=== PATIENT | female | born 1945 | race African-American/Black ===

== ENCOUNTER 2017-02-26 10:33 | Emergency (ER) | payer MEDICAID, MEDICARE ==
--- NOTE | 2017-02-26 12:02 | Emergency Department Report ---
HPI - General Chief Complaint: Extremity Problem,Nontraumatic Time Seen by Provider: 02/26/17 11:27 - HPI HPI: This is a 71-year-old female presents to the emergency department by EMS from home with complaint of bilateral lower extremity pain with the right leg much worse than the left. The pain seems to start in the buttock and hip and radiate down her leg. It worsens with movement of the leg and palpation. The patient has had this pain going on over the past few years but it worsened late last night. She denies any skin color change, swelling. She has not taken anything specifically for her pain prior to presentation but has been compliant with her home medications to treat her history of hypertension and diabetes. Her primary care doctor is Dr. Pete Calero but she has not seen him regarding the symptoms. The patient does not speak Romanian but translation is being done by her home health resident care provider. No recent travel or sick contacts at home. ED Past Medical Hx - Past Medical History Previous Medical History?: Yes Hx Hypertension: Yes Hx Diabetes: Yes - Surgical History Past Surgical History?: No - Social History Smoking Status: Never Smoker Substance Use Type: None - Medications Home Medications: Home Medications Medication Instructions Recorded Confirmed Last Taken Type Diazepam Tab [Valium] 2 mg PO BID PRN #6 tablet 02/26/17 Unknown Rx Ibuprofen [Motrin 600 MG tab] 600 mg PO Q8H PRN #16 tablet 02/26/17 Unknown Rx ED Review of Systems ROS: Stated complaint: HIP PAIN Other details as noted in HPI Comment: All other systems reviewed and negative Constitutional: denies: chills, fever Eyes: denies: eye pain, eye discharge, vision change ENT: denies: ear pain, throat pain Respiratory: denies: cough, shortness of breath, wheezing Cardiovascular: denies: chest pain, palpitations Gastrointestinal: denies: abdominal pain, nausea, diarrhea Genitourinary: denies: urgency, dysuria, discharge Musculoskeletal: arthralgia, myalgia. denies: joint swelling Skin: denies: rash, lesions Neurological: denies: headache, numbness Physical Exam - Physical Exam Vital Signs: Vital Signs 02/26/17 11:19 Temperature 98.9 F Pulse Rate 85 Respiratory 16 Rate Blood Pressure 153/74 [Right] O2 Sat by Pulse 97 Oximetry Physical Exam: GENERAL: The patient is well-developed well-nourished. HEENT: Normocephalic. Atraumatic. Extraocular motions are intact. Patient has moist mucous membranes. Pupils equal reactive to light bilaterally. NECK: Supple. Trachea is midline. CHEST/LUNGS: Clear to auscultation. There is no respiratory distress noted. HEART/CARDIOVASCULAR: Regular. There is no tachycardia. There is no gallop rub or murmur. ABDOMEN: Abdomen is soft, nontender. Patient has normal bowel sounds. There is no abdominal distention. SKIN: Skin is warm and dry. NEURO: The patient is awake, alert, and oriented. The patient is cooperative. The patient has no focal neurologic deficits. The patient has normal speech. MUSCULOSKELETAL: There is some tenderness to palpation to the right buttock, lateral hip, and proximal thigh but no obvious deformity. There is some mild decreased range of motion of the right lower extremity secondary to pain. Pedal pulses +2 over 4 bilaterally. Cap refill less than 2 seconds. There is reproduced pain with the right lower extremity straight leg raise test. There is no evidence of acute injury. ED Course Vital Signs 02/26/17 11:19 Temperature 98.9 F Pulse Rate 85 Respiratory 16 Rate Blood Pressure 153/74 [Right] O2 Sat by Pulse 97 Oximetry ED Medical Decision Making - Lab Data Result diagrams: 02/26/17 11:54 02/26/17 11:54 - Radiology Data Radiology results: report reviewed, image reviewed interpreted by me: X-ray of the right hip does not show any fracture, dislocation or any acute process. Right lower extremity venous Doppler is negative for any acute DVT or any acute process. - Medical Decision Making 71-year-old female presents the emergency department with right lower extremity pain that is worst towards the buttock and hip and radiates down the leg. The patient's rougher machine operator speaks her language and has been doing translation for us. They say that the patient does have a history of this in the past and has been diagnosed with sciatica the past as well. First, the patient was sent for a venous Doppler of the right lower extremity to rule out a DVT and it was in fact negative for acute DVT or acute process. Her labs were unremarkable including no signs of psychosis, electrolyte abnormalities, renal insufficiency , glucose abnormalities. At first the patient felt like she was having trouble with urination but says she just had trouble urinating while laying on the gurney and she could not get up and go to the bathroom due to her discomfort. An IV was placed and the patient was given some low-dose Valium for muscle relaxation and a dose of Toradol. Upon reevaluation she says she is feeling much better. The patient was able to get up in the emergency Department and ambulate for moderate distances without any instability. After the patient was able to get up and move around, she was able to display the ability to go to the bathroom and urinate without any difficulty. So there does not appear to be any signs of urinary retention. Vital signs stable throughout her ED course. The patient will be discharged home with a very small amount of muscle relaxer and NSAIDs and encouragement to follow-up with her primary care doctor. She will return to the ER with any worsening of her symptoms or any acute distress. The patient does not have any problems with bowel or bladder, numbness or paresthesias or any neurological deficits. She does not appear to have any signs of any emergent condition such as cauda equina, cord compression syndrome or epidural abscess. - Differential Diagnosis sciatica, hip dislocation, muscle strain Critical Care Time: No Critical care attestation.: If time is entered above; I have spent that time in minutes in the direct care of this critically ill patient, excluding procedure time. ED Disposition Clinical Impression: Sciatica Qualifiers: Laterality: right Qualified Code(s): M54.31 - Sciatica, right side Disposition: DISCHARGED TO HOME OR SELFCARE Is pt being admited?: No Condition: Stable Instructions: Sciatica (ED) Additional Instructions: Please follow-up with your primary care doctor in the next few days. Return to the emergency department with any worsening of your symptoms or any acute distress. You've been prescribed a medication that is sedating. Therefore this medication cannot be mixed with alcohol, or taken prior to driving, working, or being responsible for children. Prescriptions: Diazepam Tab [Valium] 2 mg PO BID PRN #6 tablet PRN Reason: Muscle Spasm Ibuprofen [Motrin 600 MG tab] 600 mg PO Q8H PRN #16 tablet PRN Reason: Pain Referrals: PRIMARY CARE, [Primary Care Provider] - [facility] Time of Disposition: 15:08
[2017-02-26 12:19] LABS: Basophils % (Auto) 0.4 % (0.0-1.8); Eosinophils % (Auto) 0.8 % (0.0-4.3); Hematocrit 33.2 % (30.3-42.9); Hemoglobin 11.5 gm/dl (10.1-14.3); Mean Corpuscular HGB Conc 35 % (30-34); Mean Corpuscular Hemoglobin 32 pg (28-32); Mean Corpuscular Volume 93 fl (79-97); Platelet Count 271 K/mm3 (140-440); Red Blood Count 3.57 M/mm3 (3.65-5.03); Red Cell Distribution Width 12.2 % (13.2-15.2); White Blood Count 9.9 K/mm3 (4.5-11.0)
[2017-02-26 12:42] LABS: Anion Gap 19 mmol/L; BUN/Creatinine Ratio 21.11; Blood Urea Nitrogen 19 mg/dL (7-17); Calcium 9.3 mg/dL (8.4-10.2); Carbon Dioxide 25 mmol/L (22-30); Chloride 99.4 mmol/L (98-107); Glucose 131 mg/dL (65-100); Potassium 4.6 mmol/L (3.6-5.0); Sodium 139 mmol/L (137-145)
[2017-02-26] MEDS ORDERED: TORADOL IV ONE (12:48)
[2017-02-26] MEDS ORDERED: VALIUM IV ONE (12:48)
--- NOTE | 2017-02-26 13:03 | XRay Report ---
Right hip 2 views: History: Hip pain. Findings: No definite bony or articular abnormality. No fracture dislocation or soft tissue calcification. Impression: No definite bony or articular abnormality. Mild hip arthritis if present cannot be excluded.
--- NOTE | 2017-02-26 13:33 | Admit Criteria Form ---
Admission Criteria Documentation: MUSCULOSKELETAL DISEASE GRG Clinical Indications for Admission to Inpatient Care (Place 'X' for any and all applicable criteria): Hospital admission is needed for appropriate care of the patient because of 1 or more of the following: [ ]I. Fracture, dislocation, or other musculoskeletal injury requiring inpatient care(medical) as indicated by 1 or more of the following(4)(5)(6)(7) [ ]a) Vertebral fracture requiring observation for instability or neurologic compromise (8) [ ]b) Compartment syndrome (proven or cannot be ruled out during observation level of care) (9) [ ]c) Limb-threatening injury [ ]d) Major injury requiring inpatient stabilization such as traction initiation or external fixation before internal fixation or closure of complex or open fracture [ ]e) Major injury requiring inpatient treatment after emergency or observation level care (as appropriate) [ ]f) Severe pain requiring acute inpatient management [ ]g) Injury with suspicion of abuse or neglect (eg., child, dependent elderly) [ ]II. Newly diagnosed or suspected bone, joint, or orthopedic device infection (e.g., osteomyelitis, septic arthritis) needing 1 or more of the following(1)(2)(3) [ ]a) IV antibiotics that cannot be initiated in other than inpatient setting (e.g., patient too unstable or home infusion not available) [ ]b) Device removal or replacement [ ]c) Bone or soft tissue debridement [ ]d) Joint drainage (drain placement or repetitive aspirations) [ ]III. Severe rheumatologic disease (e.g., systemic lupus erythematosus, rheumatoid arthritis) with complications or comorbidities (Also use Optimal Recovery Care Criteria or General Recovery Criteria as appropriate on the basis of predominant condition), including 1 or more of the following( 10)(11)(12)(13) [ ]a) Severe infection (e.g., WAGON DRIVER infection, sepsis) (14) [ ]b) Respiratory complications, including 1 or more of the following : [ ]i) Pleural effusion with respiratory compromise [ ]ii) Pulmonary hypertension with congestive failure [ ]iii) Respiratory failure [ ]iv) Pulmonary hemorrhage (15) [ ]c) Hematologic disease, including 1 or more of the following: [ ]i) Coagulopathy with bleeding [ ]ii) Thrombosis with hypercoagulable state [ ]iii) Thrombotic thrombocytopenic purpura [ ]d) Cerebritis with seizures, psychosis, or other severe abnormalities [ ]e) Vertebral destruction with monitoring needed for cervical myelopathy& possible respiratory compromise [ ]f) Exacerbation that requires inpatient treatment (e.g., intravenous immunosuppression) (16) [ ]g) Acute renal failure [ ]h) Cerebritis with seizures, psychosis, Altered mental status, or other neurologic abnormalities [ ]i) Pericardial effusion with tamponade [ ]j) Vertebral destruction, with monitoring needed for cervical myelopathy and possible respiratory compromise [ ]IV. Severe vasculitis with complications or comorbidities (Also use Optimal Recovery Care Criteria General Recovery Criteria as appropriate on the basis of predominant condition), including 1 or more of the following(11)(12)(17)(18)(19)(20) [ ]a) Exacerbation that requires inpatient treatment (e.g., intravenous immunosuppression) (19)(21) [ ]b) Pulmonary hemorrhage (15) [ ]c) WAGON DRIVER vasculitis with seizures, psychosis, Altered mental status that is severe or persistent, or other severe abnormalities (22) [ ]d) Cerebral infarction [ ]e) Gastrointestinal ischemia [ ]f) Gangrene or threatened amputation [ ]g) Renal failure (16) [ ]h) Other significant complications of vasculitis ( eg., tissue or organ ischemia, organ dysfunction ) [ ]V. Severe myopathy as indicated by 1 or more of the following (28)(29) [ ]a) New onset of airway compromise or inability to swallow [ ]b) Respiratory deterioration with observation needed for impending respiratory failure [ ]c) Exacerbation that requires inpatient treatment (e.g., intravenous immunosuppression) [ ]. Severe crystal gout (arthropathy) indicated by 1 or more of the following (23)(24) [ ]a) Severe pain requiring acute inpatient management [ ]b) Exacerbation that requires inpatient treatment (e.g., intravenous treatment) [ ]VII.Rhabdomyolysis and 1 or more of the following (25)(26)(27) [ ]a) Acute renal failure [ ]b) Need for intravenous hydration after emergency or observation level care (as appropriate) [ ]c) Inability to maintain oral hydration [ ]d) Change in mental status [ ]e) Electrolyte abnormality that remains after emergency or observation level care (as appropriate) [ ]VIII Post amputation complication, as indicated by ANY ONE of the following [ ]a) Infection [ ]b) Dehiscence [ ]c) Myodesis failure [X ]IX. Severe pain requiring acute inpatient management due to musculoskeletal condition [ ]X. Musculoskeletal Disease and ALL of the following: [ ]a) Symptom or finding for which emergency and observation care have failed or are not considered appropriate (Use General Criteria: Observation Care as appropriate) [ ]b) Presence of ANY ONE of the following [ ]i) A General Admission Criteria [ ]ii) A Pediatric General Admission Criteria The original [facility] [employer] content created by [facility] [employer] has been revised. The portions of the content which have been revised are identified through the use of italic text or in bold, and [facility] has neither reviewed nor approved the modified material. All other unmodified content is copyright [facility] [employer]. Please see references footnoted in the original [facility] edition 2016
[2017-02-26 13:45] LABS: Bilirubin,Urine NEG (Negative); Blood,Urine NEG (Negative); Ketones,Urine NEG (Negative); Leukocyte Esterase,Urine NEG (Negative); Nitrite,Urine NEG (Negative); Protein,Urine <15 mg/dL mg/dL (Negative); RBC,Urine < 1.0 /HPF (0.0-6.0); Urobilinogen,Urine < 2.0 mg/dL (<2.0); WBC,Urine < 1.0 /HPF (0.0-6.0)
[2017-02-26 15:18] VITALS: BP 126/82
--- NOTE | 2017-02-27 08:12 | Vascular Lab Report ---
LOWER EXTREMITY VENOUS DUPLEX: REASON FOR EXAM: Pain of the lower extremities. COMMENTS ON THE RIGHT: All veins visualized are freely compressible without evidence of internal echogenicity. Flow is spontaneous and phasic throughout. COMMENTS ON THE LEFT: All veins visualized are freely compressible without evidence of internal echogenicity. Flow is spontaneous and phasic throughout. IMPRESSION: No evidence of acute or chronic deep venous thrombosis in either lower extremity.
== END 2017-02-26 15:16 | disposition home or self-care (01) ==
LOC: ED 10:33
DX: M54.31 Sciatica, right side (principal); I10 Essential (primary) hypertension; E11.9 Type 2 diabetes mellitus without complications
CPT/HCPCS: 36415; 73502; 80048; 81001; 82962; 85025; 93970; 96374; 96375; 99285; J1885; J3360

== ENCOUNTER 2017-07-05 09:40 | Emergency (ER) | payer MEDICARE ==
--- NOTE | 2017-07-05 10:09 | Emergency Department Report ---
ED General Adult HPI - General Chief complaint: Pain General Stated complaint: HEADACHE Time Seen by Provider: 07/05/17 10:03 Source: EMS Mode of arrival: Stretcher Limitations: Language Barrier - History of Present Illness Initial comments: Patient is a 71-year-old female past medical history of hypertension and diabetes who presents with neck and back pain. Patient states that pain has been going on for the last couple days but it has worsened since she woke up this morning. She says the pain as a 7 out of 10 this constant. Radiates down her back. Rest makes it better and moving in certain positions makes it worse. Patient denies any chest pain nausea or vomiting. - Related Data Home Medications Medication Instructions Recorded Confirmed Last Taken Acetaminophen/Codeine [Tylenol 07/05/17 Unknown /Codeine # 3 tab] Alendronate Sodium [Fosamax] 70 mg PO QWEEK 07/05/17 07/05/17 Unknown Celecoxib 200 mg PO 07/05/17 Unknown Gabapentin [Neurontin] 07/05/17 Unknown Losartan/Hydrochlorothiazide 07/05/17 Unknown [Losartan-Hctz 100-25 mg Tab] Nitroglycerin [Nitrostat] 0.4 mg SL Q5M PRN 07/05/17 07/05/17 Unknown Omeprazole 20 07/05/17 Unknown Simvastatin [Zocor TAB] 07/05/17 Unknown Sitagliptin Phosphate [Januvia] 100 mg PO 07/05/17 Unknown traMADol [Ultram 50 MG tab] 07/05/17 Unknown Previous Rx's Medication Instructions Recorded Last Taken Type Diazepam Tab [Valium] 2 mg PO BID PRN #6 tablet 02/26/17 Unknown Rx Ibuprofen [Motrin 600 MG tab] 600 mg PO Q8H PRN #16 tablet 02/26/17 Unknown Rx Acetaminophen [Shake That Ache] 1,000 mg PO Q6HR PRN #30 tablet 07/05/17 Unknown Rx Allergies Allergy/AdvReac Type Severity Reaction Status Date / Time No Known Allergies Allergy Unverified 02/26/17 10:38 ED Review of Systems ROS: Stated complaint: HEADACHE Other details as noted in HPI Constitutional: denies: chills, fever Eyes: denies: eye pain, eye discharge, vision change ENT: denies: ear pain, throat pain Respiratory: denies: cough, shortness of breath, wheezing Cardiovascular: denies: chest pain, palpitations Endocrine: no symptoms reported Gastrointestinal: denies: abdominal pain, nausea, diarrhea Genitourinary: denies: urgency, dysuria, discharge Musculoskeletal: back pain, myalgia. denies: joint swelling, arthralgia Skin: denies: rash, lesions Neurological: denies: headache, weakness, paresthesias Psychiatric: denies: anxiety, depression Hematological/Lymphatic: denies: easy bleeding, easy bruising ED Past Medical Hx - Past Medical History Hx Hypertension: Yes Hx Diabetes: Yes - Social History Smoking Status: Unknown if ever smoked Substance Use Type: None - Medications Home Medications: Home Medications Medication Instructions Recorded Confirmed Last Taken Type Diazepam Tab [Valium] 2 mg PO BID PRN #6 tablet 02/26/17 Unknown Rx Ibuprofen [Motrin 600 MG tab] 600 mg PO Q8H PRN #16 tablet 02/26/17 Unknown Rx Acetaminophen [Shake That Ache] 1,000 mg PO Q6HR PRN #30 tablet 07/05/17 Unknown Rx Acetaminophen/Codeine [Tylenol 07/05/17 Unknown History /Codeine # 3 tab] Alendronate Sodium [Fosamax] 70 mg PO QWEEK 07/05/17 07/05/17 Unknown History Celecoxib 200 mg PO 07/05/17 Unknown History Gabapentin [Neurontin] 07/05/17 Unknown History Losartan/Hydrochlorothiazide 07/05/17 Unknown History [Losartan-Hctz 100-25 mg Tab] Nitroglycerin [Nitrostat] 0.4 mg SL Q5M PRN 07/05/17 07/05/17 Unknown History Omeprazole 20 07/05/17 Unknown History Simvastatin [Zocor TAB] 07/05/17 Unknown History Sitagliptin Phosphate [Januvia] 100 mg PO 07/05/17 Unknown History traMADol [Ultram 50 MG tab] 07/05/17 Unknown History ED Physical Exam - General Limitations: Language Barrier General appearance: alert, in no apparent distress - Head Head exam: Present: atraumatic, normocephalic - Eye Eye exam: Present: normal appearance - ENT ENT exam: Present: mucous membranes moist - Neck Neck exam: Present: tenderness - Respiratory Respiratory exam: Present: normal lung sounds bilaterally. Absent: respiratory distress - Cardiovascular Cardiovascular Exam: Present: regular rate, normal rhythm. Absent: systolic murmur, diastolic murmur, rubs, gallop - GI/Abdominal GI/Abdominal exam: Present: soft, normal bowel sounds - Extremities Exam Extremities exam: Present: normal inspection - Back Exam Back exam: Present: tenderness, muscle spasm, paraspinal tenderness - Neurological Exam Neurological exam: Present: alert, oriented X3 - Psychiatric Psychiatric exam: Present: normal affect, normal mood - Skin Skin exam: Present: warm, dry, intact, normal color. Absent: rash ED Course Vital Signs 07/05/17 07/05/17 09:57 11:19 Temperature 97.8 F Pulse Rate 84 80 Respiratory 20 20 Rate Blood Pressure 154/73 Blood Pressure 141/66 [Left] O2 Sat by Pulse 100 97 Oximetry ED Medical Decision Making - Lab Data Result diagrams: 07/05/17 10:51 07/05/17 10:51 Lab Results 07/05/17 07/05/17 07/05/17 Range/Units 10:51 10:51 11:55 WBC 8.6 (4.5-11.0) K/mm3 RBC 3.56 L (3.65-5.03) M/mm3 Hgb 11.3 (10.1-14.3) gm/dl Hct 32.5 (30.3-42.9) % MCV 91 (79-97) fl MCH 32 (28-32) pg MCHC 35 H (30-34) % RDW 12.1 L (13.2-15.2) % Plt Count 253 (140-440) K/mm3 Lymph % (Auto) 18.7 (13.4-35.0) % [place] % (Auto) 9.7 H (0.0-7.3) % Eos % (Auto) 0.9 (0.0-4.3) % Baso % (Auto) 0.8 (0.0-1.8) % Lymph # 1.6 (1.2-5.4) K/mm3 [place] # 0.8 (0.0-0.8) K/mm3 Eos # 0.1 (0.0-0.4) K/mm3 Baso # 0.1 (0.0-0.1) K/mm3 Seg Neutrophils % 69.9 (40.0-70.0) % Seg Neutrophils # 6.0 (1.8-7.7) K/mm3 Sodium 139 (137-145) mmol/L Potassium 4.8 (3.6-5.0) mmol/L Chloride 101.4 (98-107) mmol/L Carbon Dioxide 23 (22-30) mmol/L Anion Gap 19 mmol/L BUN 17 (7-17) mg/dL Creatinine 0.7 (0.7-1.2) mg/dL Estimated GFR > 60 ml/min BUN/Creatinine Ratio 24.28 % Glucose 93 (65-100) mg/dL Calcium 9.0 (8.4-10.2) mg/dL Total Bilirubin 0.40 (0.1-1.2) mg/dL AST 19 (5-40) units/L ALT 15 (7-56) units/L Alkaline Phosphatase 65 (35-129) units/L Total Protein 7.5 (6.3-8.2) g/dL Albumin 3.6 L (3.9-5) g/dL Albumin/Globulin Ratio 0.9 % Urine Color Red (Yellow) Urine Turbidity Clear (Clear) Urine pH 7.0 (5.0-7.0) Ur Specific [place] 1.003 (1.003-1.030) Urine Protein <15 mg/dl (Negative) mg/dL Urine Glucose (UA) Neg (Negative) mg/dL Urine Ketones Neg (Negative) mg/dL Urine Blood Neg (Negative) Urine Nitrite Neg (Negative) Urine Bilirubin Neg (Negative) Urine Urobilinogen < 2.0 (<2.0) mg/dL Ur Leukocyte Esterase Neg (Negative) Urine WBC (Auto) < 1.0 (0.0-6.0) /HPF Urine RBC (Auto) < 1.0 (0.0-6.0) /HPF U Epithel Cells (Auto) 1.0 (0-13.0) /HPF - Medical Decision Making Medical diagnosis: Cervicalgia Differential diagnosis: metabolic abnormality, sciatica, paraspinal tenderness Plan CBC, CMP, oral analgesic segment medication, muscle relaxers and I will reevaluate. Agents pain is better discussed with patient that she has paraspinal neck pain and will need heating packs and neck exercises to make the pain better. Patient recently plan and she'll follow up with primary care doctor. Critical care attestation.: If time is entered above; I have spent that time in minutes in the direct care of this critically ill patient, excluding procedure time. ED Disposition Clinical Impression: Cervicalgia, Myalgia Lower back pain Qualifiers: Chronicity: acute Back pain laterality: unspecified Sciatica presence: with sciatica Sciatica laterality: sciatica laterality unspecified Qualified Code(s) : M54.40 - Lumbago with sciatica, unspecified side Disposition: TO HOME OR SELFCARE Is pt being admited?: No Does the pt Need Aspirin: No Condition: Stable Instructions: Cervical Sprain (ED), Musculoskeletal Pain (ED) Prescriptions: Acetaminophen [Shake That Ache] 1,000 mg PO Q6HR PRN #30 tablet PRN Reason: Pain Referrals: BIBI KILPATRICK MD [Staff Physician] - 3-5 Days Print Language: DANISH
[2017-07-05] MEDS ORDERED: MORPHINE IV ONE (10:10)
[2017-07-05 11:10] LABS: Basophils % (Auto) 0.8 % (0.0-1.8); Eosinophils % (Auto) 0.9 % (0.0-4.3); Hematocrit 32.5 % (30.3-42.9); Hemoglobin 11.3 gm/dl (10.1-14.3); Mean Corpuscular HGB Conc 35 % (30-34); Mean Corpuscular Hemoglobin 32 pg (28-32); Mean Corpuscular Volume 91 fl (79-97); Platelet Count 253 K/mm3 (140-440); Red Blood Count 3.56 M/mm3 (3.65-5.03); Red Cell Distribution Width 12.1 % (13.2-15.2); White Blood Count 8.6 K/mm3 (4.5-11.0)
[2017-07-05 11:30] LABS: Alanine Aminotransferase 15 units/L (7-56); Albumin 3.6 g/dL (3.9-5); Albumin/Globulin Ratio 0.9 %; Alkaline Phosphatase 65 units/L (35-129); Anion Gap 19 mmol/L; BUN/Creatinine Ratio 24.28; Blood Urea Nitrogen 17 mg/dL (7-17); Carbon Dioxide 23 mmol/L (22-30); Chloride 101.4 mmol/L (98-107); Glucose 93 mg/dL (65-100); Potassium 4.8 mmol/L (3.6-5.0); Sodium 139 mmol/L (137-145); Total Protein 7.5 g/dL (6.3-8.2)
[2017-07-05 12:29] LABS: Bilirubin,Urine NEG (Negative); Blood,Urine NEG (Negative); Ketones,Urine NEG (Negative); Leukocyte Esterase,Urine NEG (Negative); Nitrite,Urine NEG (Negative); Protein,Urine <15 mg/dL mg/dL (Negative); RBC,Urine < 1.0 /HPF (0.0-6.0); Urobilinogen,Urine < 2.0 mg/dL (<2.0); WBC,Urine < 1.0 /HPF (0.0-6.0)
[2017-07-05] MEDS ORDERED: MOTRIN PO ONE (12:46)
[2017-07-05] MEDS ORDERED: NORCO 5/325 PO ONE (12:46)
[2017-07-05] MEDS ORDERED: VALIUM PO ONE (13:00)
[2017-07-05 14:33] VITALS: BP 125/56
== END 2017-07-05 14:35 | disposition home or self-care (01) ==
LOC: ED 09:40
DX: M54.40 Lumbago with sciatica, unspecified side (principal); M54.2 Cervicalgia; M79.1 Myalgia; I10 Essential (primary) hypertension; E11.9 Type 2 diabetes mellitus without complications
CPT/HCPCS: 36415; 80053; 81001; 85025; 96374; 99284; J2270

== ENCOUNTER 2019-06-03 09:18 | Emergency (ER) | payer MEDICARE ==
[2019-06-03] MEDS ORDERED: CARAFATE PO ONE (10:46)
--- NOTE | 2019-06-03 10:48 | Emergency Department Report ---
ED General Adult HPI - General Chief complaint: Dental/Oral Stated complaint: MEDICAL CLEARENCE Time Seen by Provider: 06/03/19 10:20 Source: patient, RN notes reviewed, old records reviewed Mode of arrival: Ambulatory Limitations: Language Barrier - History of Present Illness Initial comments: Primary care Dr.: Dr. Pete Calero Past medical history: Presumed GERD/reflux, hypertension, neuropathic pain, diabetes This is a 73-year-old female. This patient is not known to this provider previously. She presents to the ER after being sent here by her primary care doctor. The patient reports that she has nontraumatic bilateral submandibular swelling and masses, resident for a few months. She reported that she saw her primary care doctor at least 3 separate times for these masses, and he sent her to the emergency room for evaluation. She reports that these lesions are constant, somewhat painful, do not radiate anywhere, that she has some pain with swallowing. Patient denies fever, thinks that she is nauseous, but has not vomited. On review of systems, patient endorses since the chest pressure and breathing discomfort for over a year. This is intermittent, and does not radiate to the back, arms or legs. Patient makes no complaints of leg pain or leg swelling. Geographic Information Scientist number:[id number] -: month(s), year(s) Location: neck, chest Severity scale (0 -10): 10 Quality: other Consistency: other Improves with: other Worsens with: other - Related Data Home Medications Medication Instructions Recorded Confirmed Last Taken Acetaminophen/Codeine [Tylenol 07/05/17 Unknown /Codeine # 3 tab] Alendronate Sodium [Fosamax] 70 mg PO QWEEK 07/05/17 07/05/17 Unknown Celecoxib 200 mg PO 07/05/17 Unknown Gabapentin [Neurontin] 07/05/17 Unknown Losartan/Hydrochlorothiazide 07/05/17 Unknown [Losartan-Hctz 100-25 mg Tab] Nitroglycerin [Nitrostat] 0.4 mg SL Q5M PRN 07/05/17 07/05/17 Unknown Omeprazole 20 07/05/17 Unknown Simvastatin [Zocor TAB] 07/05/17 Unknown Sitagliptin Phosphate [Januvia] 100 mg PO 07/05/17 Unknown traMADol [Ultram 50 MG tab] 07/05/17 Unknown Previous Rx's Medication Instructions Recorded Last Taken Type Ibuprofen [Motrin 600 MG tab] 600 mg PO Q8H PRN #16 tablet 02/26/17 Unknown Rx diazePAM TAB [Valium] 2 mg PO BID PRN #6 tablet 02/26/17 Unknown Rx Acetaminophen [Shake That Ache] 1,000 mg PO Q6HR PRN #30 tablet 07/05/17 Unknown Rx Allergies Allergy/AdvReac Type Severity Reaction Status Date / Time No Known Allergies Allergy Unverified 02/26/17 10:38 ED Review of Systems ROS: Stated complaint: MEDICAL CLEARENCE Other details as noted in HPI Constitutional: denies: fever Eyes: denies: eye discharge ENT: denies: congestion Respiratory: shortness of breath Cardiovascular: chest pain Gastrointestinal: nausea Skin: lesions ED Past Medical Hx - Past Medical History Previous Medical History?: Yes Hx Hypertension: Yes Hx Diabetes: Yes - Surgical History Past Surgical History?: No - Social History Smoking Status: Never Smoker Substance Use Type: None - Medications Home Medications: Home Medications Medication Instructions Recorded Confirmed Last Taken Type Ibuprofen [Motrin 600 MG tab] 600 mg PO Q8H PRN #16 tablet 02/26/17 Unknown Rx diazePAM TAB [Valium] 2 mg PO BID PRN #6 tablet 02/26/17 Unknown Rx Acetaminophen [Shake That Ache] 1,000 mg PO Q6HR PRN #30 tablet 07/05/17 Unknown Rx Acetaminophen/Codeine [Tylenol 07/05/17 Unknown History /Codeine # 3 tab] Alendronate Sodium [Fosamax] 70 mg PO QWEEK 07/05/17 07/05/17 Unknown History Celecoxib 200 mg PO 07/05/17 Unknown History Gabapentin [Neurontin] 07/05/17 Unknown History Losartan/Hydrochlorothiazide 07/05/17 Unknown History [Losartan-Hctz 100-25 mg Tab] Nitroglycerin [Nitrostat] 0.4 mg SL Q5M PRN 07/05/17 07/05/17 Unknown History Omeprazole 20 07/05/17 Unknown History Simvastatin [Zocor TAB] 07/05/17 Unknown History Sitagliptin Phosphate [Januvia] 100 mg PO 07/05/17 Unknown History traMADol [Ultram 50 MG tab] 07/05/17 Unknown History ED Physical Exam - General Limitations: Language Barrier General appearance: alert, in no apparent distress - Head Head exam: Present: atraumatic, normocephalic - Eye Eye exam: Present: normal appearance, EOMI. Absent: nystagmus - ENT ENT exam: Present: normal exam, normal orophraynx, mucous membranes moist, normal external ear exam, other (patient speaking in full sentences. There is no stridor. There is no dysphonia.) - Neck Neck exam: Present: normal inspection, full ROM, lymphadenopathy. Absent: tenderness, meningismus - Respiratory Respiratory exam: Present: normal lung sounds bilaterally. Absent: respiratory distress, wheezes, rales, rhonchi, stridor, chest wall tenderness - Cardiovascular Cardiovascular Exam: Present: regular rate, normal rhythm, normal heart sounds. Absent: bradycardia, tachycardia, irregular rhythm, systolic murmur, diastolic murmur, rubs, gallop - GI/Abdominal GI/Abdominal exam: Present: soft. Absent: distended, tenderness, guarding, rebound, rigid, pulsatile mass - Extremities Exam Extremities exam: Present: normal inspection, full ROM, other (2+ pulses noted in the bilateral upper, lower extremities. Compartments soft. No long bony tenderness. The pelvis is stable.). Absent: joint swelling, calf tenderness - Back Exam Back exam: Present: normal inspection, full ROM. Absent: tenderness, CVA tenderness (R), CVA tenderness (L), paraspinal tenderness, vertebral tenderness - Neurological Exam Neurological exam: Present: alert, normal gait, other (Extraocular movements intact. Tongue midline. No facial droop. Facial sensation intact to light touch in the V1, V2, V3 distribution bilaterally. 5 and 5 strength in 4 extremities.. Sensation is intact to light touch in 4 extremities.). Absent: motor sensory deficit - Psychiatric Psychiatric exam: Present: anxious - Skin Skin exam: Present: warm, dry, intact, normal color. Absent: rash ED Course Vital Signs 06/03/19 06/03/19 06/03/19 09:25 10:44 11:04 Temperature 98.2 F 97.3 F L Pulse Rate 79 72 Respiratory 18 18 18 Rate Blood Pressure 102/47 Blood Pressure 129/50 [Left] O2 Sat by Pulse 95 99 99 Oximetry 06/03/19 16:30 Temperature 97.8 F Pulse Rate 82 Respiratory 18 Rate Blood Pressure Blood Pressure 144/49 [Left] O2 Sat by Pulse 96 Oximetry - Reevaluation(s) Reevaluation #1: 06/03/19 11:22 Differential diagnosis, including not limited to: Lymphadenopathy, lymphoma, acute coronary syndrome, GERD, gastritis, hiatal hernia, urinary embolism Assessment and plan: 73-year-old female with a primary complaint of submandibular swelling, present for months, and discomfort with swallowing. Objectively speaking, and the patient does have minimal bilateral submandibular adenopathy, it is not consistent with superinfection, she is phonating in normal sentences, and protecting her airway. In addition, she has passed her swallow screen. This condition has been present for months, and currently, is not consistent with infection, abscess, or even large mass. This does not require emergent imaging in the emergency room, and this is an appropriate condition to be followed up and worked up by an outpatient primary care doctor, or an manager etl. The patient's chest pain is present for 1 year. Her EKG is abnormal, however, not consistent with ST elevation myocardial infarction. The patient is not actively diaphoretic and is saturating well on room air, without tachycardia or tachypnea. Chest pain and shortness of breath are not her primary complaint, the only elicited on review of systems. We will treat her symptoms, obtain EKG 2, and troponin 2, in addition to a d-dimer. If this initial workup is unremarkable, the patient may follow up with an outpatient psychological tests sales agent comp leted risk stratification. Her age and risk factor profile are reviewed and appreciated, however, given the history and physical, the patient is unlikely to benefits from admission to the hospital for expedited cardiac risk stratification. Furthermore, this [facility] has policy and procedure whereby patients maintain exudative outpatient cardiology follow-up to complete a risk stratification, and the patient will be placed in this protocol. Reevaluation #2: 06/03/19 16:37 Troponin negative 2. Patient noted to be eating full meal tray without difficulty. Vital signs remained stable, patient appears to be uncomfortable. Please note that patient had a very prolonged delay in disposition secondary to delays in acquisition of CAT scan, secondary to one of the Ct machines being down for repair Reevaluation #3: 06/03/19 18:08 CT scan of the chest is negative for acute disease. CT scan of the neck is negative for acute disease. Patient had a delay in acquisition of diagnostics secondary to administrative and technical issues in the CT scanner. Nevertheless, the patient has been observed here for hours without clinical decompensation, and is suitable to follow up with an outpatient physician. ED Medical Decision Making - Lab Data Result diagrams: 06/03/19 10:54 06/03/19 10:54 Vital Signs 06/03/19 06/03/19 06/03/19 09:25 10:44 11:04 Temperature 98.2 F 97.3 F L Pulse Rate 79 72 Respiratory 18 18 18 Rate Blood Pressure 102/47 Blood Pressure 129/50 [Left] O2 Sat by Pulse 95 99 99 Oximetry - EKG Data -: EKG Interpreted by Me EKG shows normal: sinus rhythm Rate: normal - EKG Data When compared to previous EKG there are: previous EKG unavailable 06/03/19 11:29 This is a sinus rhythm, 77 bpm, normal axis, QTC within normal limits, borderline high left ventricular voltage, nonspecific T-wave abnormalities, motion artifact, the EKG is abnormal, the EKG is not consistent with ST elevation myocardial infarction. - Radiology Data Radiology results: pending, report reviewed, image reviewed interpreted by me: Two-view x-ray of the chest is reviewed and appreciated, is negative for acute disease. CT scan of the neck is negative for acute disease. CT scan of the chest is negative for acute disease. Critical care attestation.: If time is entered above; I have spent that time in minutes in the direct care of this critically ill patient, excluding procedure time. ED Disposition Clinical Impression: Neck mass, History of chest pain Disposition: -01 TO HOME OR SELFCARE Is pt being admited?: No Does the pt Need Aspirin: No Condition: Stable Additional Instructions: Continue outpatient medications. Patient will need to follow-up with her primary care doctor, or ear nose throat specialist for further evaluation and management of neck masses. Local ENT specialists including the following: Abdoul Ramos and Katrin Recommend follow-up within the next 2 weeks for neck masses. Not following up as recommended by resultant undiagnosed tumor, cancer, malignancy. In addition, given that the patient complained of one year of chest discomfort, recommend close outpatient follow-up with a psychological tests sales agent. Patient should follow-up with a psychological tests sales agent within the next 3-5 days. Local cardiologists include [facility] and Dr Rowe Patient may take [id number] Tylenol alternating with ibuprofen as needed for sensation of pain, and alternate ice packs and heat packs to the neck discomfort. Please return to the emergency room right away with new, worsening or different symptoms, or symptoms not present on the initial emergency room evaluation. Referrals: REGLA RUELAS MD [Staff Physician] - 3-5 Days STEFFEN RAMOS MD [Staff Physician] - 3-5 Days WILLIAM NOWAK MD [Staff Physician] - 3-5 Days [facility] [Provider Group] - 3-5 Days
--- NOTE | 2019-06-03 11:33 | XRay Report ---
CHEST 2 VIEWS INDICATION / CLINICAL INFORMATION: HX OF SOB. COMPARISON: 03/13/2019. FINDINGS: SUPPORT DEVICES: None. HEART / MEDIASTINUM: The heart size is borderline with a left ventricular configuration. Pulmonary va sculature is normal. There is mild aortic tortuosity without aneurysm. LUNGS / PLEURA: No significant pulmonary or pleural abnormality. No pneumothorax. ADDITIONAL FINDINGS: No significant additional findings. IMPRESSION: No acute abnormality or significant change. Signer Name: Zhang Aguirre MD Signed: 06/03/2019 11:28 AM Workstation Name: [id number]
[2019-06-03 11:51] LABS: Alanine Aminotransferase 20 units/L (7-56); Albumin 3.1 g/dL (3.9-5); BUN/Creatinine Ratio 22; Blood Urea Nitrogen 24 mg/dL (7-17); Calcium 9.5 mg/dL (8.4-10.2); Hemolysis Index 4
[2019-06-03 11:52] LABS: Basophils % (Auto) 0.3 % (0.0-1.8); Eosinophils # (Auto) 0.2 K/mm3 (0.0-0.4); Eosinophils % (Auto) 1.9 % (0.0-4.3); Hematocrit 33.9 % (30.3-42.9); Hemoglobin 11.3 gm/dl (10.1-14.3); Lymphocytes # (Auto) 1.6 K/mm3 (1.2-5.4); Lymphocytes % (Auto) 16.6 % (13.4-35.0); Mean Corpuscular HGB Conc 33 % (30-34); Mean Corpuscular Volume 89 fl (79-97); Monocytes # (Auto) 0.8 K/mm3 (0.0-0.8); Monocytes % (Auto) 8.7 % (0.0-7.3); Platelet Count 234 K/mm3 (140-440); Red Blood Count 3.79 M/mm3 (3.65-5.03)
[2019-06-03 12:02] LABS: INR 1.05 (0.87-1.13)
[2019-06-03 12:03] LABS: Partial Thromboplastin Time 31.8 Sec. (24.2-36.6)
[2019-06-03] MEDS ORDERED: MAGNESIUM SULFATE 2GM/50ML 2 GM/50 ML BAG IV ONE (12:12)
[2019-06-03] MEDS ORDERED: NACL 0.9% 500 ML 500 ML IV ONE (12:12)
[2019-06-03] MEDS ORDERED: MAG-OX PO ONE (12:30)
[2019-06-03 16:31] VITALS: BP 144/49
--- NOTE | 2019-06-03 17:54 | Cat Scan Report ---
CT NECK WITH CONTRAST HISTORY: Neck pain COMPARISON: None. TECHNIQUE: Routine CT of the neck is performed following intravenous contrast. Is images are obtained following CTA of the chest. All CT scans at this location are performed using CT dose reduction for ALARA by means of automated exposure control. CONTRAST: 60 mL Omnipaque 350 FINDINGS: Skull Base: No significant abnormality. Parotid, Carotid, Retropharyngeal, Prevertebral, Pharyngeal Mucosal, and Laboratory Miller Spaces: No abnorm al mass, enhancing lesion or other significant abnormality. Fossa tonsils are normal. I do not see CT findings to suggest peritonsillar abscess. Airway: Patent and without significant abnormality. Lymphatics: No lymphadenopathy. Vasculature: Limited opacification; carotid bifurcation calcification Osseous Structures: No significant abnormality Additional findings: Subcutaneous tissue and platysma are normal. IMPRESSION: 1. No significant abnormality. Signer Name: Miguel Casey MD Signed: 06/03/2019 5:50 PM Workstation Name: [id number]
--- NOTE | 2019-06-03 17:57 | Cat Scan Report ---
CTA CHEST WITH IV CONTRAST INDICATION: Acute onset chest pain with dyspnea TECHNIQUE: Axial CT images were obtained through the chest after injection of 100 mL IV contrast. 3 plane MIP re constructions were produced. All CT scans at this location are performed using CT dose reduction for ALARA by means of automated exposure control. COMPARISON: None available. FINDINGS: PULMONARY ARTERIES: No pulmonary emboli. AORTA AND ARTERIES: No acute abnormality. Mild coronary artery calcification. There is mild atheroscl erotic calcification of the descending thoracic aorta but there is no aneurysm or dissection. MEDIASTINUM: No mass, lymphadenopathy or other significant abnormality. The heart is normal in size w ithout a pericardial effusion. The trachea and main bronchi are patent and normal in caliber. LUNGS: No acute airspace disease identified. There is some ill-defined bibasilar atelectasis present. ADDITIONAL FINDINGS: None. UPPER ABDOMEN: No acute findings. BONES: No significant osseous abnormality. IMPRESSION: 1. No CT evidence for pulmonary embolism. 2. No acute findings. Signer Name: Rojas Huizar MD Signed: 06/03/2019 5:52 PM Workstation Name: [id number]
== END 2019-06-03 18:14 | disposition home or self-care (01) ==
LOC: ED 09:18
DX: R22.1 Localized swelling, mass and lump, neck (principal); R07.89 Other chest pain; K21.9 Gastro-esophageal reflux disease without esophagitis; I10 Essential (primary) hypertension; E11.40 Type 2 diabetes mellitus with diabetic neuropathy, unspecified; Z79.899 Other long term (current) drug therapy
CPT/HCPCS: 36415; 70491; 71046; 71275; 80053; 82550; 83735; 84484; 85025; 85379; 85610; 85730; 93005; 93010; 96365; 99285; J3475; J7040; Q9967

== ENCOUNTER 2019-07-31 06:49 | Outpatient (CLI) | payer MEDICARE ==
--- NOTE | 2019-07-31 15:07 | Fluoroscopy Report ---
MODIFIED BARIUM SWALLOW INDICATION: DYSPHAGIA OROPHARYNGEAL/R13.12 TECHNIQUE: Swallowing was evaluated in the lateral position under direct fluoroscopy. FINDINGS: The patient was evaluated with contrast coated food items of various consistencies such as puree, nectar, honey, mixed, thick, and thin consistencies. No aspiration, though transient penetration noted when swallowing thin liquids. Slight cervical spine degenerative changes, well age-appropriate. IMPRESSION: Findings, as above. Please also correlate with speech pathologist notes. Fluoroscopic time: 3.1 minutes Number of fluoroscopic images: 1 Signer Name: Florence Jones Signed: 07/31/2019 3:02 PM Workstation Name: [id number]
== END 2019-07-31 06:50 | disposition home or self-care (01) ==
LOC: PT 06:49
PROVIDERS: ATTEND Otolaryngology
DX: R13.12 Dysphagia, oropharyngeal phase (principal); I10 Essential (primary) hypertension
CPT/HCPCS: 74230

== ENCOUNTER 2021-12-30 01:51 | Emergency (ER) | payer MEDICARE ==
[2021-12-30 03:11] LABS: Basophils % (Auto) 0.3 % (0.0-1.8); Eosinophils # (Auto) 0.1 K/mm3 (0.0-0.4); Eosinophils % (Auto) 0.8 % (0.0-4.3); Hematocrit 37.1 % (30.3-42.9); Hemoglobin 12.5 gm/dl (10.1-14.3); Lymphocytes % (Auto) 11.3 % (13.4-35.0); Mean Corpuscular HGB Conc 34 % (30-34); Mean Corpuscular Volume 88 fl (79-97); Monocytes % (Auto) 11.2 % (0.0-7.3); Platelet Count 254 K/mm3 (140-440); Red Blood Count 4.23 M/mm3 (3.65-5.03); Red Cell Distribution Width 11.8 % (13.2-15.2)
[2021-12-30 03:12] LABS: Bilirubin,Urine NEG (Negative); Blood,Urine NEG (Negative); Color,Urine Straw (Yellow); Mucus,Urine FEW /HPF; Protein,Urine <15 mg/dL mg/dL (Negative); Urobilinogen,Urine < 2.0 mg/dL (<2.0)
[2021-12-30 03:33] LABS: Alanine Aminotransferase 20 units/L (7-56); BUN/Creatinine Ratio 21; Blood Urea Nitrogen 19 mg/dL (7-17); Calcium 9.6 mg/dL (8.4-10.2); Hemolysis Index 4
[2021-12-30] MEDS ORDERED: PANTOPRAZOLE 40 MG INJ IV ONE (03:50)
[2021-12-30] MEDS ORDERED: KETOROLAC 30 MG/1 ML INJ IV ONE (03:50)
[2021-12-30] MEDS ORDERED: SODIUM CHLORIDE 0.9% 250ML 250 ML IV ONE (03:52)
[2021-12-30] MEDS ORDERED: SODIUM CHLORIDE 0.9% 1000 ML 1,000 ML ONE (04:11)
[2021-12-30] MEDS ORDERED: SODIUM CHLORIDE 0.9% 1000 ML 1,000 ML IV ONE (04:22)
--- NOTE | 2021-12-30 04:52 | Emergency Department Report ---
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 Pain has been ongoing for several days and worsening. The patient states that she has had symptoms similar to this previously requiring hospitalization in 2019. She complains of nausea and vomiting but no diarrhea. The patient denies blood in the vomit and states that the stool is watery in color. Her pain is relieved by nothing and exacerbated by movement or placing pressure on the area. She denies fever or chills. -: Gradual, week(s) Location: abdomen Severity scale (0 -10): 7 Quality: dull Consistency: constant Improves with: none Worsens with: none Associated Symptoms: nausea/vomiting. denies: chest pain, malaise, weakness Treatments Prior to Arrival: none - Related Data Home Medications Medication Instructions Recorded Confirmed Last Taken Simvastatin (NF) [Zocor TAB] 40 mg PO QDAY 07/05/17 07/07/20 1 Day Ago ~07/06/20 Sitagliptin Phosphate [Januvia] 100 mg PO QDAY 07/07/20 07/07/20 1 Day Ago ~07/06/20 hydroCHLOROthiazide [HCTZ] 25 mg PO QDAY 07/07/20 07/07/20 1 Day Ago ~07/06/20 propranoloL [Inderal] 10 mg PO ONCE 07/07/20 07/07/20 1 Day Ago ~07/06/20 Previous Rx's Medication Instructions Recorded Last Taken Type Ondansetron [Zofran Odt] 4 mg PO Q8HR PRN #14 tab.rapdis 03/13/19 Unknown Rx Pantoprazole [Protonix TAB] 40 mg PO BIDAC #60 tablet 07/09/20 Unknown Rx HYDROcodone/APAP 5-325 [[place] 1 each PO Q4HR PRN #14 tablet 12/30/21 Unknown Rx 5-325 mg TAB] Ondansetron (Nf) [Zofran TAB] 8 mg PO Q8HR PRN #10 tablet 12/30/21 Unknown Rx Pantoprazole [Protonix] 40 mg PO BID #30 tablet 12/30/21 Unknown Rx levoFLOXacin [Levaquin TAB] 500 mg PO QDAY #7 tablet 12/30/21 Unknown Rx Allergies Allergy/AdvReac Type Severity Reaction Status Date / Time No Known Allergies Allergy Verified 12/30/21 04:13 ED Review of Systems ROS: Stated complaint: NAUSEA,VOMITING,VERTIGO Other details as noted in HPI ED Past Medical Hx - Past Medical History Hx Hypertension: Yes Hx CVA: No Hx Congestive Heart Failure: No Hx Diabetes: Yes Hx Renal Disease: No Hx Arthritis: No Hx Seizures: No Hx Asthma: No Hx COPD: No Additional medical history: HYPERLIPIDEMIA, HEART DISEASE - Surgical History Hx Pacemaker: No - Social History Smoking Status: Never Smoker - Medications Home Medications: Home Medications Medication Instructions Recorded Confirmed Last Taken Type Simvastatin (NF) [Zocor TAB] 40 mg PO QDAY 07/05/17 07/07/20 1 Day Ago History ~07/06/20 Ondansetron [Zofran Odt] 4 mg PO Q8HR PRN #14 tab.rapdis 03/13/19 Unknown Rx Sitagliptin Phosphate [Januvia] 100 mg PO QDAY 07/07/20 07/07/20 1 Day Ago History ~07/06/20 hydroCHLOROthiazide [HCTZ] 25 mg PO QDAY 07/07/20 07/07/20 1 Day Ago History ~07/06/20 propranoloL [Inderal] 10 mg PO ONCE 07/07/20 07/07/20 1 Day Ago History ~07/06/20 Pantoprazole [Protonix TAB] 40 mg PO BIDAC #60 tablet 07/09/20 Unknown Rx HYDROcodone/APAP 5-325 [[place] 1 each PO Q4HR PRN #14 tablet 12/30/21 Unknown Rx 5-325 mg TAB] Ondansetron (Nf) [Zofran TAB] 8 mg PO Q8HR PRN #10 tablet 12/30/21 Unknown Rx Pantoprazole [Protonix] 40 mg PO BID #30 tablet 12/30/21 Unknown Rx levoFLOXacin [Levaquin TAB] 500 mg PO QDAY #7 tablet 12/30/21 Unknown Rx ED Physical Exam - General Limitations: Language Barrier ED Course Vital Signs 12/30/21 12/30/21 12/30/21 02:01 03:05 03:15 Temperature 98.7 F Pulse Rate 109 H 113 H Respiratory 16 25 H Rate Blood Pressure 178/83 Blood Pressure 184/75 [Left] O2 Sat by Pulse 97 97 96 Oximetry 12/30/21 12/30/21 12/30/21 03:31 03:45 04:01 Temperature Pulse Rate 117 H 112 H 120 H Respiratory 25 H 21 24 Rate Blood Pressure 168/65 166/60 153/58 Blood Pressure [Left] O2 Sat by Pulse 96 95 97 Oximetry 12/30/21 12/30/21 12/30/21 04:07 04:15 04:24 Temperature 98.9 F Pulse Rate 118 H Respiratory 22 25 H 22 Rate Blood Pressure 156/69 Blood Pressure [Left] O2 Sat by Pulse 95 95 Oximetry 12/30/21 12/30/21 12/30/21 04:31 04:45 05:01 Temperature Pulse Rate 110 H 115 H 117 H Respiratory 26 H 26 H 27 H Rate Blood Pressure 149/71 149/71 170/63 Blood Pressure [Left] O2 Sat by Pulse 95 96 96 Oximetry 12/30/21 12/30/21 12/30/21 05:15 05:31 05:45 Temperature Pulse Rate 119 H 113 H 117 H Respiratory 25 H 21 28 H Rate Blood Pressure 170/63 157/60 157/60 Blood Pressure [Left] O2 Sat by Pulse 96 94 97 Oximetry 12/30/21 12/30/21 12/30/21 05:50 05:51 06:01 Temperature 97.9 F Pulse Rate 114 H Respiratory 23 22 Rate Blood Pressure 144/58 Blood Pressure [Left] O2 Sat by Pulse 95 Oximetry 12/30/21 12/30/21 12/30/21 06:15 06:31 06:45 Temperature Pulse Rate 110 H 115 H 112 H Respiratory 21 24 23 Rate Blood Pressure 144/58 156/58 156/58 Blood Pressure [Left] O2 Sat by Pulse 95 95 95 Oximetry 12/30/21 07:01 Temperature Pulse Rate 116 H Respiratory 24 Rate Blood Pressure 153/64 Blood Pressure [Left] O2 Sat by Pulse 97 Oximetry ED Medical Decision Making - Lab Data Result diagrams: 12/30/21 02:44 12/30/21 02:44 The patient's labs were reviewed and her pancreatic function was noted to be normal. - Medical Decision Making A review of the patient's chart showed that she was admitted in 2019 for an upper GI bleed secondary to peptic ulcer disease. The patient has had abdominal pain off and on however this is become more intense and constant. She denies vomiting blood or noticed any blood in her stool. Patient denies alcohol abuse or history of pancreatitis. She also denies urinary symptoms. Critical care attestation.: If time is entered above; I have spent that time in minutes in the direct care of this critically ill patient, excluding procedure time. ED Disposition Clinical Impression: Upper abdominal pain, Peptic ulcer disease Urinary tract infection Qualifiers: Urinary tract infection type: acute cystitis Hematuria presence: without hematuria Qualified Code(s): N30.00 - Acute cystitis without hematuria Disposition: HOME / SELF CARE / HOMELESS Is pt being admited?: No Does the pt Need Aspirin: No Condition: Stable Instructions: Peptic Ulcer, [id number], Abdominal Pain, Adult, [id number] Prescriptions: levoFLOXacin [Levaquin TAB] 500 mg PO QDAY #7 tablet HYDROcodone/APAP 5-325 [[place] 5-325 mg TAB] 1 each PO Q4HR PRN #14 tablet PRN Reason: Pain Pantoprazole [Protonix] 40 mg PO BID #30 tablet Ondansetron (Nf) [Zofran TAB] 8 mg PO Q8HR PRN #10 tablet PRN Reason: Nausea Referrals: MARYBEL CAI MD [Primary Care Provider] - 3-5 Days
[2021-12-30] MEDS ORDERED: MORPHINE 2 MG/1 ML INJ IV ONE (05:37)
[2021-12-30 07:52] VITALS: BP 153/64
== END 2021-12-30 08:10 | disposition home or self-care (01) ==
LOC: ED 01:51
DX: K27.9 Peptic ulcer, site unspecified, unspecified as acute or chronic, without hemorrhage or perforation (principal); N39.0 Urinary tract infection, site not specified; R10.12 Left upper quadrant pain; I10 Essential (primary) hypertension
CPT/HCPCS: 36415; 80053; 81001; 82270; 83690; 85025; 87086; 96361; 96374; 96375; 99284; C9113; J1885; J2270; J7030; Q0162